=== PATIENT | female | born 1980 | race Caucasian/White ===

== ENCOUNTER → 2017-02-04 | Outpatient (CLI) | payer BC ==
[~2017-02-04] MED LIST: B-CO1CAP17 PO; CHEMO THERAPY
== END | disposition home or self-care (01) ==
LOC: C.LABBC 09:35
PROVIDERS: ATTEND Internal Medicine Medical Oncology
DX: C50.919 Malignant neoplasm of unspecified site of unspecified female breast (principal); N83.209 Unspecified ovarian cyst, unspecified side

== ENCOUNTER → 2017-07-01 | Outpatient (CLI) | payer BC | END | disposition home or self-care (01) | LOC: C.LABBC 07:56 | PROVIDERS: ATTEND Obstetrics & Gynecology | DX: C50.919 Malignant neoplasm of unspecified site of unspecified female breast (principal) ==

== ENCOUNTER → 2017-07-06 | Outpatient (CLI) | payer BC | END | disposition home or self-care (01) | LOC: C.LABBC 08:16 | PROVIDERS: ATTEND Internal Medicine Medical Oncology | DX: C50.919 Malignant neoplasm of unspecified site of unspecified female breast (principal); N83.209 Unspecified ovarian cyst, unspecified side ==

== ENCOUNTER → 2017-07-23 | Outpatient (CLI) | payer BC ==
[2017-07-23 11:46] LABS: HEPATITIS B AB POS
== END | disposition home or self-care (01) ==
LOC: C.LABBC 08:26
PROVIDERS: ATTEND Obstetrics & Gynecology
DX: Z12.4 Encounter for screening for malignant neoplasm of cervix (principal)

== ENCOUNTER → 2018-01-27 | Outpatient (CLI) | payer OTHER ==
--- NOTE | 2018-01-27 13:00 | DIAGNOSTIC IMAGING REPORT ---
PELVIC COMPLETE NON OB HISTORY: 37 years-old Female C50.919,M83.209 acute pelvic pain COMPARISON: None available TECHNIQUE: Multiple real-time sonographic images of the deep pelvic structures were obtained transabdominally and transvaginally assessing grayscale appearance, color and spectral flow FINDINGS: TRANSABDOMINAL: Anteflexed uterus measures 8.6 x 3.1 x 4.3 cm and is unremarkable without myometrial mass lesion identified. Endometrium is homogeneous, 0.6 cm. No adnexal mass lesions are identified. TRANSVAGINAL: Endometrium measures 0.8 cm. A small 4 mm cyst is noted within the region of the lower uterine segment. There is trace fluid within the endocervical canal and lower uterine segment endometrial canal. Uterus measures 8.2 x 4.2 x 4.6 cm. The right ovary measures 2.2 x 1.3 x 2.3 cm and is unremarkable with arterial inflow and venous outflow documented. No right adnexal mass lesions. The left ovary measures 3.9 x 2.0 x 2.6 cm. There is a thick-walled centrally cystic structure within the left ovary, 1.8 x 1.7 x 1.6 cm. Arterial inflow is documented within the left ovary. No significant free pelvic fluid. IMPRESSION: 1. Thick-walled centrally cystic structure of the left ovary measuring up to 1.8 cm suggests dominant follicle. No evidence of ovarian torsion. 2. Trace fluid of the lower uterine segment endometrial canal and endocervical canal, likely physiologic. The uterus and endometrium are otherwise unremarkable. 3. Normal-appearing right ovary. The above report was generated using voice recognition software. It may contain grammatical, syntax or spelling errors. Electronically signed by: Real Okeefe M.D. 01/27/2018 12:59 PM Dictated Date/Time: 01/27/2018 12:54 PM
== END | disposition home or self-care (01) ==
LOC: C.ULTRBC 07:37
PROVIDERS: ATTEND Internal Medicine Medical Oncology
DX: C50.919 Malignant neoplasm of unspecified site of unspecified female breast (principal); N83.209 Unspecified ovarian cyst, unspecified side

== ENCOUNTER → 2018-06-28 | Outpatient (CLI) | payer OTHER ==
[~2018-06-28] MED LIST changes: -B-CO1CAP17 PO; +B-COCAP2 PO
== END | disposition home or self-care (01) ==
LOC: C.LABBC 12:40
PROVIDERS: ATTEND Internal Medicine Medical Oncology
DX: C50.919 Malignant neoplasm of unspecified site of unspecified female breast (principal); N83.209 Unspecified ovarian cyst, unspecified side